=== PATIENT | male | born 1955 | race Caucasian/White ===

== ENCOUNTER 2017-07-06 16:14 | Emergency (ER) | payer OTHER ==
[2017-07-06] MEDS: HYDROCODONE/APAP (5/325) TAB PO (21:56)
== END 2017-07-06 22:00 | disposition home or self-care (01) ==
LOC: FTE 16:14
DX: T83.098A Other mechanical complication of other urinary catheter, initial encounter (principal); I10 Essential (primary) hypertension; Y73.8 Miscellaneous gastroenterology and urology devices associated with adverse incidents, not elsewhere classified
CPT/HCPCS: 99283; Z7502